=== PATIENT | female | born 1955 | race Caucasian/White ===

== ENCOUNTER → 2024-03-15 | Outpatient (CLI) | payer MEDICARE, OTHER, SELFPAY ==
--- NOTE | 2024-03-15 08:15 | CT_ITS ---
STUDY: CT FACIAL BONES WITHOUT CONTRAST REASON FOR EXAM: Female, 68 years old. SINUSITIS. Dizziness. RADIATION DOSAGE (If Supplied By Facility): CTDIvol = ( 33.06 ) mGy, DLP = ( 837.98 ) mGycm TECHNIQUE: The patient was scanned in a multi detector CT scanner. Sagittal and coronal images were reconstructed. Individualized dose optimization techniques were used for this CT. COMPARISON: None. FINDINGS: Normal soft tissue structures. Normal orbital lambert and orbital contents. Normal nasal bones and anterior nasal spine. Normal facial bones. There is no demonstrated fracture. There is soft tissue density in the right sphenoid sinus with extension to the right side of the clivus. Correlation with MRI is recommended. CT/Sinus/Facial Bone IMPRESSION: Soft tissue density in the right sphenoid sinus extending to the right side of the clivus and sphenoid bone. Correlation with MRI is recommended for further evaluation. Electronically Signed: Rajat Vick MD at 9:30 EDT ,
== END | disposition home or self-care (01) ==
LOC: CT 08:10
PROVIDERS: Referring Provider Otolaryngology Otolaryngology/Facial Plastic Surgery; Visit Provider Otolaryngology Otolaryngology/Facial Plastic Surgery
DX: J32.2 Chronic ethmoidal sinusitis (principal)
CPT/HCPCS: 70486